=== PATIENT | male | born 1940 ===

== ENCOUNTER 2018-12-14 02:35 | Inpatient (IN) | payer OTHER ==
[2018-12-14] MEDS ORDERED: Sodium Chloride 0.9% 1,000 ML IV STA ×2 (02:43→05:16)
[2018-12-14 03:47] LABS: VENOUS BLOOD GAS BASE EXCESS 0.2 mmol/L (0.0-2.0); VENOUS BLOOD GAS PCO2 71 mmHg (40-60); VENOUS BLOOD GAS PO2 20 mm/Hg (30-55); VENOUS BLOOD PH 7.23 (7.32-7.43)
[2018-12-14 03:50] LABS: BASO # 0.1 K/uL (0.0-0.2); BASO % 0.5 % (0.0-2.0); EOS # 0.2 K/uL (0.0-0.7); EOS % 1.8 % (0.0-4.0); HEMOGLOBIN 12.9 g/dL (12.0-18.0); LYMPH # 2.1 K/uL (1.0-4.3); LYMPH % 17.2 % (20.0-40.0); MEAN CELL VOLUME 93.9 fl (80.0-94.0); MEAN CORPUSCULAR HEMOGLOBIN 32.1 pg (27.0-31.0); MEAN CORPUSCULAR HGB CONC 34.2 g/dL (33.0-37.0); MEAN PLATELET VOLUME 7.2 fl (7.2-11.7); MONO # 1.3 K/uL (0.0-0.8); NEUT # 8.4 K/uL (1.8-7.0); NEUT % 69.5 % (50.0-75.0); NRBC % 0.2 % (0.0-0.0); RBC 4.01 Mil/uL (4.40-5.90); RED CELL DISTRIBUTION WIDTH 14.9 % (11.5-14.5)
[2018-12-14] MEDS ORDERED: Piperacillin/Tazobact 3.375 GM in Sodium Chloride 0.9% 100 ML IVPB STA (03:54)
[2018-12-14 04:02] LABS: ABG ALLEN TEST YES; ARTERIAL BLOOD GAS HCO3 24.3 mmol/L (21-28); ARTERIAL BLOOD GAS O2 SAT 98.4 % (95-98); ARTERIAL BLOOD GAS PCO2 37 mm/Hg (35-45); ARTERIAL BLOOD GAS PH 7.41 (7.35-7.45); ARTERIAL BLOOD GAS PO2 115 mm/Hg (80-100); ARTERIAL BLOOD GAS TCO2 24.6 mmol/L (22-28)
[2018-12-14] MEDS ORDERED: Piperacillin/Tazobact 3.375 gm Inj IVPB ONE (04:05)
[2018-12-14 04:45] LABS: BARBITURATES, UR NEGATIVE (NEGATIVE); BENZODIAZEPINES, UR NEGATIVE (NEGATIVE); OPIATES, UR NEGATIVE (NEGATIVE); PHENCYCLIDINE, UR NEGATIVE (NEGATIVE)
[2018-12-14 04:54] LABS: ALB/GLOB RATIO 1.1 (1.0-2.1); ALBUMIN 4.2 g/dL (3.5-5.0); ALT/SGPT 25 U/L (21-72); AST/SGOT 41 U/L (17-59); BLOOD UREA NITROGEN 16 mg/dl (9-20); CALCIUM 8.9 mg/dL (8.4-10.2); GFR NON-AFRICAN AMERICAN > 60
[2018-12-14] MEDS ORDERED: Dextrose 50% SYRINGE Inj (50 ml) IVP ONE (05:17)
--- NOTE | 2018-12-14 05:17 | ED PDOC ---
Hyperglycemia/Hypoglycemia Time Seen by Provider: 12/14/18 02:37 Chief Complaint (Nursing): High Blood Sugar Chief Complaint (Provider): Hypoglycemia History Per: Patient, EMS History/Exam Limitations: no limitations Onset/Duration Of Symptoms: Unknown Current Symptoms Are (Timing): Still Present : The patient does not have any of the infectious symptoms listed except for those marked. Additional Complaint(s): 78 y/o male brought in by EMS after a security installation sales technician at his residence heard moaning at the other side of the door, finding him on the floor. Patient was hypoglycemic in the field. Patient received d50 and somewhat recovered but still appeared confused. On arrival to the ED, patient states that he takes many medications but is unable to recall any of them at this time. Patient reports that he doesn't know why he is here. At this time, patient is currently alert and oriented (x2). Patient believes his PMD is Dr. Luana Alvarado in [place]. PMD: Luana Alvarado ([place], [place]) Past Medical History Reviewed: Historical Data, Nursing Documentation, Vital Signs Vital Signs: Last Vital Signs Temp 94.5 F L 12/14/18 03:20 Pulse 90 12/14/18 03:20 Resp 14 12/14/18 03:20 BP 119/66 12/14/18 03:20 Pulse Ox 99 12/14/18 03:20 - Medical History PMH: Diabetes - Surgical History Surgical History: No Surg Hx - Family History Family History: States: Unknown Family Hx - Immunization History Hx Tetanus Toxoid Vaccination: No Hx Influenza Vaccination: No Hx Pneumococcal Vaccination: No - Home Medications Home Medications: Ambulatory Orders Medication Instructions Recorded Aspirin [Ecotrin] 81 mg PO DAILY 12/14/18 Brimonidine Tartrate/Timolol 1 drop EACHEYE Q12 12/14/18 [Combigan 0.2%-0.5% Eye Drops] Dutasteride [Avodart] 0.5 mg PO DAILY 12/14/18 Ergocalciferol (Vitamin D2) 50,000 unit PO QWK 12/14/18 [Vitamin D2] Escitalopram [Lexapro] 20 mg PO HS 12/14/18 Fenofibric Acid (Choline) 135 mg PO DAILY 12/14/18 [Fenofibric Acid] Finasteride [Proscar] 5 mg PO DAILY 12/14/18 Gabapentin [Neurontin] 300 mg PO HS 12/14/18 Insulin Detemir [Levemir] 30 unit SC Q12 12/14/18 Isosorbide Mononitrate ER [Imdur 30 mg PO DAILY 12/14/18 ER] Lipase/Protease/Amylase [Lana Dr 4 cap PO TID 12/14/18 6,000 Units Capsule] Melatonin 10 mg PO HS PRN 12/14/18 Meloxicam [Mobic] 15 mg PO DAILY 12/14/18 Metoprolol Succinate XL [Toprol XL] 25 mg PO DAILY 12/14/18 Omeprazole 20 mg PO DAILY 12/14/18 Simvastatin [Zocor] 20 mg PO HS 12/14/18 Sitagliptin Phos/Metformin HCl 1 tab PO DAILY 12/14/18 [Janumet Xr 50-1,000 mg Tablet] - Allergies Allergies/Adverse Reactions: Allergies Allergy/AdvReac Type Severity Reaction Status Date / Time No Known Allergies Allergy Unverified 08/08/13 11:27 Review of Systems ROS Statement: Except As Marked, All Systems Reviewed And Found Negative Constitutional: Positive for: Other (HYPOGLYCEMIA) Neurological: Positive for: Confusion, Altered Mental Status Physical Exam - Reviewed Nursing Documentation Reviewed: Yes Vital Signs Reviewed: Yes - Physical Exam Appears: Positive for: Non-toxic, No Acute Distress Head Exam: Positive for: ATRAUMATIC, NORMOCEPHALIC Skin: Positive for: Normal Color, Warm, Dry Eye Exam: Positive for: Other (L eye with large cataract ) ENT: Positive for: Pharynx Is (Dry mucus membranes) Neck: Positive for: Normal, Painless ROM, Supple Cardiovascular/Chest: Positive for: Regular Rate, Rhythm. Negative for: Murmur Respiratory: Positive for: Normal Breath Sounds. Negative for: Respiratory Distress Gastrointestinal/Abdominal: Positive for: Normal Exam, Soft. Negative for: Tenderness Extremity: Positive for: Normal ROM. 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 Negative for: Motor/Sensory Deficits - Laboratory Results Result Diagrams: 12/14/18 03:35 12/14/18 04:00 Lab Results: pCO2 37 mm/Hg (35-45) 12/14/18 03:57 pO2 115 mm/Hg (80-100) H 12/14/18 03:57 HCO3 24.3 mmol/L (21-28) 12/14/18 03:57 ABG pH 7.41 (7.35-7.45) 12/14/18 03:57 ABG Total CO2 24.6 mmol/L (22-28) 12/14/18 03:57 ABG O2 Saturation 98.4 % (95-98) H 12/14/18 03:57 ABG Base Excess -0.8 mmol/L (-2.0-3.0) 12/14/18 03:57 Maury Test Yes 12/14/18 03:57 ABG Potassium 4.2 mmol/L (3.6-5.2) 12/14/18 03:57 VBG pH 7.23 (7.32-7.43) L 12/14/18 03:43 VBG pCO2 71 mmHg (40-60) H* 12/14/18 03:43 VBG HCO3 23.0 mmol/L 12/14/18 03:43 VBG Total CO2 31.9 mmol/L (22-28) H 12/14/18 03:43 VBG O2 Sat (Calc) 25.8 % (40-65) L 12/14/18 03:43 VBG Base Excess 0.2 mmol/L (0.0-2.0) 12/14/18 03:43 VBG Potassium 3.6 mmol/L (3.6-5.2) 12/14/18 03:43 A-a O2 Difference -12.0 mm/Hg 12/14/18 03:57 Sodium 131.0 mmol/L (132-148) L 12/14/18 03:57 Chloride 101.0 mmol/L (98-107) 12/14/18 03:57 Glucose 85 mg/dL (75-110) 12/14/18 03:57 Lactate 1.7 mmol/L (0.7-2.1) 12/14/18 03:57 FiO2 21.0 % 12/14/18 03:57 Crit Value Called To Dr vivek roberson 12/14/18 03:43 Crit Value Called By Pablo 12/14/18 03:43 Crit Value Read Back Y 12/14/18 03:43 Blood Gas Notified Time 346 12/14/18 03:43 Total Bilirubin 0.3 mg/dl (0.2-1.3) 12/14/18 04:00 AST 41 U/L (17-59) 12/14/18 04:00 ALT 25 U/L (21-72) 12/14/18 04:00 Alkaline Phosphatase 47 U/L (38-126) 12/14/18 04:00 Total Protein 8.0 G/DL (6.3-8.2) 12/14/18 04:00 Albumin 4.2 g/dL (3.5-5.0) 12/14/18 04:00 Globulin 3.8 gm/dL (2.2-3.9) 12/14/18 04:00 Albumin/Globulin Ratio 1.1 (1.0-2.1) 12/14/18 04:00 - ECG O2 Sat by Pulse Oximetry: 99 (RA) Pulse Ox Interpretation: Normal Medical Decision Making Medical Decision Making: Time: 0243 A/P: Patient brought in for hypoglycemia. Patient found to be hypothermic with elevated WBC. -- Initial VBG showed elevated lactate and CO2 -- ABG demonstrates normal CO2 and Lactate -- Do not suspect meningitis given supple neck. Will give empiric antibiotics for sepsis. -- Will admit for altered mental status and hypothermia, sepsis, unknown source, possibly PNA? -- VBG -- CT Head w/o Contrast -- Alcohol Serum -- Urine Drug Screen -- Lipase -- Troponin I -- CBC with Differentials -- CXR -- Glucose POC -- Sodium Chloride IV 1000 mls/hr Time: 0354 Plan: -- ABG -- Vancomycin 1 gm Sodium Chloride 250 ml IVPB -- Zosyn 3.375 gm Sodium Chloride 100 ml IVPB -- Blood Culture -- Urine Culture -- Tiara Ramirez -- O2 via 100% Nonrebreather Time: 0410 CT scan of the head. CLINICAL HISTORY: Altered mental status. TECHNIQUE: Multiple axial CT images were obtained through the brain without IV contrast material. comparison: 11/27/2010. COMMENTS: Mild right mastoid effusion. Mild effusion in the right middle ear cavity. There is normal configuration of sella turcica. There are no intra or extra- axial collections. There is no mass effect or midline shift. There is no evidence of hematoma formation. No hydrocephalus is present. The ventricles are symmetrical. No abnormal calcifications are present. There is diffuse age-appropriate cerebellar and cerebral atrophy with proportionally dilated ventricles and cortical sulci. There are bilateral periventricular and subcortical white matter hypolucencies compatible with mild chronic microvascular disease. Otherwise, no significant focal abnormalities are seen either in the posterior fossa or supratentorial compartment. Hyperdense left globe. IMPRESSION: 1. Age-appropriate cerebellar and cerebral atrophy. 2. Mild chronic microvascular disease. 3. No evidence of acute intracranial pathology. Thank you for your kind referral of this patient. Electronically signed on Dec 14, 2018 4:10:53 AM EDT by: Javad Reyes M.D., Certified by ABR, MSK, Neuroradiology Time: 435 Plan: -- CMP Time: 517 Plan: -- Urinalysis -- Sodium Chloride 0.9% IV 1000 mls/hr -- Dextrose 50% Inj 50 ml IVP -- Glucose, POC [address] Fung who accepts admission and will continue care. Scribe Attestation: Documented by Milo Seth, acting as a scribe for Vivek Roberson MD. Provider Scribe Attestation: All medical record entries made by the Scribe were at my direction and personally dictated by me. I have reviewed the chart and agree that the record accurately reflects my personal performance of the history, physical exam, medical decision making, and the department course for this patient. I have also personally directed, reviewed, and agree with the discharge instructions and disposition. Disposition - Clinical Impression Clinical Impression: Hypoglycemia, Hypothermia, Sepsis - Patient ED Disposition Is Patient to be Admitted: Yes - Disposition Disposition Time: 06:00 Condition: FAIR
[2018-12-14] MEDS ORDERED: Dextrose 50% SYRINGE Inj (50 ml) ONE (05:29)
[2018-12-14 05:34] LABS: URINE BILIRUBIN NEGATIVE (NEGATIVE); URINE BLOOD NEGATIVE (NEGATIVE); URINE CLARITY SLIGHTY-CLOUDY (Clear); URINE COLOR YELLOW (YELLOW); URINE GLUCOSE (UA) 150 mg/dL (NEGATIVE); URINE LEUKOCYTE ESTERASE NEG Leu/uL (Negative); URINE PROTEIN NEGATIVE (NEGATIVE); URINE UROBILINOGEN 0.2-1.0 mg/dL (0.2-1.0)
[2018-12-14] MEDS ORDERED: Vancomycin 1 g Inj ONE (05:42)
[2018-12-14] MEDS ORDERED: Dextrose 5%/0.9% NS 1,000 ML IV ONE (08:15)
[2018-12-14] MEDS ORDERED: Glucagon Recombinant 1 mg Inj IM PRN (08:23)
[2018-12-14] MEDS ORDERED: Dextrose 50% SYRINGE Inj (50 ml) IV PRN (08:23)
--- NOTE | 2018-12-14 08:56 | CARD ---
APPROVED REPORT Date of service: 12/14/2018 EKG Measurement Heart [id number] <Conclusion> Atrial fibrillation Right bundle branch block Abnormal ECG
[2018-12-14 09:45] LABS: PROTHROMBIN TIME 11.5 Seconds (9.8-13.1)
[2018-12-14 09:47] LABS: PARTIAL THROMBOPLASTIN TIME 33.2 Seconds (25.6-37.1)
[2018-12-14 09:57] VITALS: BMI 25.6
--- NOTE | 2018-12-14 10:31 | CT ---
Date of service: 12/14/2018 PROCEDURE: CT HEAD WITHOUT CONTRAST. HISTORY: ams COMPARISON: 11/27/2010 TECHNIQUE: Axial computed tomography images were obtained through the head/brain without intravenous contrast. Radiation dose: Total exam DLP = 922.44 mGy-cm. This CT exam was performed using one or more of the following dose reduction techniques: Automated exposure control, adjustment of the mA and/or kV according to patient size, and/or use of iterative reconstruction technique. FINDINGS: HEMORRHAGE: No intracranial hemorrhage. BRAIN: No mass effect or edema. Mild diffuse age-appropriate cerebral atrophy. There is mild to moderate periventricular white matter lucency with patchy deep and subcortical white matter lucency, consistent with microvascular white matter ischemic change. 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 This is new since prior head CT examination. There is no evidence of acute infarct. VENTRICLES: Unremarkable. No hydrocephalus. CALVARIUM: Unremarkable. PARANASAL SINUSES: Unremarkable as visualized. No significant inflammatory changes. MASTOID AIR CELLS: There is nonspecific right mastoid effusion. There is soft tissue density and coarse calcification within the right middle ear cavity of uncertain significance. Possible cholesteatoma. Rule out otitis media. There is soft tissue density seen within the left external auditory canal possibly reflecting cerumen. Correlate with direct visual inspection. OTHER FINDINGS: None. IMPRESSION: No intracranial mass, hemorrhage or evidence of acute infarct. Chronic white matter ischemic change. Old left thalamic lacunar infarct. Nonspecific right mastoid effusion. Soft tissue density and coarse calcification in the right middle ear cavity of uncertain significance. Rule out cholesteatoma. Consider further evaluation. Rule out otitis media. The preliminary findings for this examination were reported by [facility] Rad[facility] at 4:10 a.m. on 12/14/2018.. There is discordance of this report with the preliminary findings. The possibility of right mastoiditis and right otitis media/cholesteatoma were not described in the preliminary report of this examination
[2018-12-14] MEDS: Insulin Regular 100 units/ml SC SCH ×3 (12:00→23:26)
[2018-12-14] MEDS ORDERED: Ergocalciferol 50,000 Intl Units Cap PO SCH (13:45)
--- NOTE | 2018-12-14 13:47 | CP.PCM.HP ---
History of Present Illness - History of Present Illness History of Present Illness: Pt is a poor historian. Oriented to name only. History obtained on review of medication records and after discussion with sister and brother. 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 On presentation to ED, patient was found to be Septic, Altered Mental Status, Hypothermic, and Cxray showing R. lung consolidation. Family states that they last saw him yesterday afternoon and he appeared to be in his usual health. They denied seeing any cough, chills, n/v, or diarrhea. 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 They express concern that he often becomes confused in the evening which is problematic given that he has to inject himself with insulin at bedtime. Pt walks with cane but falls frequently. PMD: Dr. Suarez Present on Admission - Present on Admission Any Indicators Present on Admission: No History of DVT/PE: No History of Uncontrolled Diabetes: No Urinary Catheter: No Decubitus Ulcer Present: No Review of Systems - Constitutional Constitutional: absent: Chills, Fever - EENT Eyes: Other (left eye blindness) - Cardiovascular Cardiovascular: absent: Chest Pain, Dyspnea - Respiratory Respiratory: absent: Cough - Gastrointestinal Gastrointestinal: absent: Abdominal Pain, Diarrhea - Genitourinary Genitourinary: absent: Dysuria - Musculoskeletal Musculoskeletal: Abnormal Gait - Neurological Neurological: Abnormal Gait, Frequent Falls Past Patient History - Past Social History Smoking Status: Never Smoked - CARDIAC Hx Cardiac Disorders: Yes Hx Hypertension: Yes - PULMONARY Hx Respiratory Disorders: No - NEUROLOGICAL Hx Neurological Disorder: No - HEENT Hx HEENT Problems: Yes Hx Cataracts: Yes (Lt eye) - RENAL Hx Chronic Kidney Disease: No - ENDOCRINE/METABOLIC Hx Endocrine Disorders: Yes Hx Diabetes Mellitus Type 1: Yes - HEMATOLOGICAL/ONCOLOGICAL Hx Blood Disorders: No - INTEGUMENTARY Hx Dermatological Problems: No - MUSCULOSKELETAL/RHEUMATOLOGICAL Hx Musculoskeletal Disorders: No - GASTROINTESTINAL Hx Gastrointestinal Disorders: No - GENITOURINARY/GYNECOLOGICAL Hx Genitourinary Disorders: Yes Hx Prostate Problems: Yes - PSYCHIATRIC Hx Psychophysiologic Disorder: No Hx Substance Use: No - SURGICAL HISTORY Hx Surgeries: Yes Other/Comment: Prostate - ANESTHESIA Hx Anesthesia: Yes Hx Anesthesia Reactions: No Meds Allergies/Adverse Reactions: Allergies Allergy/AdvReac Type Severity Reaction Status Date / Time No Known Allergies Allergy Unverified 08/08/13 11:27 Physical Exam - Constitutional Appears: In Acute Distress (pt appears agitated; attempting to remove is line. Later in the afternoon, appears more calm ) - Head Exam Head Exam: NORMAL INSPECTION - Eye Exam Eye Exam: Normal appearance - ENT Exam ENT Exam: Mucous Membranes Dry - Neck Exam Neck exam: Negative for: Meningismus - Respiratory Exam Respiratory Exam: Decreased Breath Sounds, Clear to Auscultation Bilateral - Cardiovascular Exam Cardiovascular Exam: Irregular Rhythm, +S1, +S2 - GI/Abdominal Exam GI & Abdominal Exam: Normal Bowel Sounds, Soft. absent: Tenderness - Extremities Exam Extremities exam: Positive for: normal inspection - Neurological Exam Neurological exam: Alert - Psychiatric Exam Psychiatric exam: Agitated - Skin Skin Exam: Normal Color Results - Vital Signs Recent Vital Signs: Last Vital Signs Temp 98 F 12/14/18 07:33 Pulse 65 12/14/18 07:33 Resp 18 12/14/18 07:33 BP 106/67 12/14/18 07:33 Pulse Ox 100 12/14/18 07:33 - Labs Result Diagrams: 12/14/18 03:35 12/14/18 04:00 Labs: Laboratory Results - last 24 hr 12/14/18 12/14/18 12/14/18 02:56 03:35 03:43 WBC 12.0 H RBC 4.01 L Hgb 12.9 Hct 37.7 MCV 93.9 MCH 32.1 H MCHC 34.2 RDW 14.9 H Plt Count 539 H MPV 7.2 Neut % (Auto) 69.5 Lymph % (Auto) 17.2 L [place] % (Auto) 11.0 H Eos % (Auto) 1.8 Baso % (Auto) 0.5 Neut # (Auto) 8.4 H Lymph # (Auto) 2.1 [place] # (Auto) 1.3 H Eos # (Auto) 0.2 Baso # (Auto) 0.1 pCO2 pO2 20 L HCO3 ABG pH ABG Total CO2 ABG O2 Saturation ABG Base Excess Maury Test ABG Potassium VBG pH 7.23 L VBG pCO2 71 H* VBG HCO3 23.0 VBG Total CO2 31.9 H VBG O2 Sat (Calc) 25.8 L VBG Base Excess 0.2 VBG Potassium 3.6 A-a O2 Difference Sodium 133.0 Chloride 99.0 Glucose 73 L Lactate 2.7 H FiO2 21.0 Crit Value Called To Dr ruy mejia Crit Value Called By Crit Value Read Back Y Blood Gas Notified Time 346 Potassium Carbon Dioxide Anion Gap BUN Creatinine Est GFR ( Amer) Est GFR (Non-Af Amer) POC Glucose (mg/dL) 111 H Random Glucose Calcium Total Bilirubin AST ALT Alkaline Phosphatase Total Protein Albumin Globulin Albumin/Globulin Ratio Arterial Blood Potassium Venous Blood Potassium 3.6 Urine Color Urine Clarity Urine pH Ur Specific [place] Urine Protein Urine Glucose (UA) Urine Ketones Urine Blood Urine Nitrate Urine Bilirubin Urine Urobilinogen Ur Leukocyte Esterase Urine RBC (Auto) Urine Microscopic WBC Urine Opiates Screen Urine Methadone Screen Ur Barbiturates Screen Ur Phencyclidine Scrn Ur Amphetamines Screen U Benzodiazepines Scrn U Oth Cocaine Metabols U Cannabinoids Screen 12/14/18 12/14/18 12/14/18 03:57 04:00 04:15 WBC RBC Hgb Hct MCV MCH MCHC RDW Plt Count MPV Neut % (Auto) Lymph % (Auto) [place] % (Auto) Eos % (Auto) Baso % (Auto) Neut # (Auto) Lymph # (Auto) [place] # (Auto) Eos # (Auto) Baso # (Auto) pCO2 37 pO2 115 H HCO3 24.3 ABG pH 7.41 ABG Total CO2 24.6 ABG O2 Saturation 98.4 H ABG Base Excess -0.8 Maury Test Yes ABG Potassium 4.2 VBG pH VBG pCO2 VBG HCO3 VBG Total CO2 VBG O2 Sat (Calc) VBG Base Excess VBG Potassium A-a O2 Difference -12.0 Sodium 131.0 L 137 Chloride 101.0 95 L Glucose 85 Lactate 1.7 FiO2 21.0 Crit Value Called To Crit Value Called By Crit Value Read Back Blood Gas Notified Time Potassium 4.2 Carbon Dioxide 27 Anion Gap 19 BUN 16 Creatinine 0.9 Est GFR ( Amer) > 60 Est GFR (Non-Af Amer) > 60 POC Glucose (mg/dL) Random Glucose 66 L Calcium 8.9 Total Bilirubin 0.3 AST 41 ALT 25 Alkaline Phosphatase 47 Total Protein 8.0 Albumin 4.2 Globulin 3.8 Albumin/Globulin Ratio 1.1 Arterial Blood Potassium 4.2 Venous Blood Potassium Urine Color Urine Clarity Urine pH Ur Specific [place] Urine Protein Urine Glucose (UA) Urine Ketones Urine Blood Urine Nitrate Urine Bilirubin Urine Urobilinogen Ur Leukocyte Esterase Urine RBC (Auto) Urine Microscopic WBC Urine Opiates Screen Negative Urine Methadone Screen Negative Ur Barbiturates Screen Negative Ur Phencyclidine Scrn Negative Ur Amphetamines Screen Negative U Benzodiazepines Scrn Negative U Oth Cocaine Metabols Negative U Cannabinoids Screen Negative 12/14/18 12/14/18 12/14/18 05:16 05:24 06:45 WBC RBC Hgb Hct MCV MCH MCHC RDW Plt Count MPV Neut % (Auto) Lymph % (Auto) [place] % (Auto) Eos % (Auto) Baso % (Auto) Neut # (Auto) Lymph # (Auto) [place] # (Auto) Eos # (Auto) Baso # (Auto) pCO2 pO2 HCO3 ABG pH ABG Total CO2 ABG O2 Saturation ABG Base Excess Maury Test ABG Potassium VBG pH VBG pCO2 VBG HCO3 VBG Total CO2 VBG O2 Sat (Calc) VBG Base Excess VBG Potassium A-a O2 Difference Sodium Chloride Glucose Lactate FiO2 Crit Value Called To Crit Value Called By Crit Value Read Back Blood Gas Notified Time Potassium Carbon Dioxide Anion Gap BUN Creatinine Est GFR ( Amer) Est GFR (Non-Af Amer) POC Glucose (mg/dL) 64 L 150 H Random Glucose Calcium Total Bilirubin AST ALT Alkaline Phosphatase Total Protein Albumin Globulin Albumin/Globulin Ratio Arterial Blood Potassium Venous Blood Potassium Urine Color Yellow Urine Clarity Slighty-cloudy Urine pH 7.0 Ur Specific [place] 1.012 Urine Protein Negative Urine Glucose (UA) 150 Urine Ketones Negative Urine Blood Negative Urine Nitrate Negative Urine Bilirubin Negative Urine Urobilinogen 0.2-1.0 Ur Leukocyte Esterase Neg Urine RBC (Auto) < 1 Urine Microscopic WBC < 1 Urine Opiates Screen Urine Methadone Screen Ur Barbiturates Screen Ur Phencyclidine Scrn Ur Amphetamines Screen U Benzodiazepines Scrn U Oth Cocaine Metabols U Cannabinoids Screen 12/14/18 07:44 WBC RBC Hgb Hct MCV MCH MCHC RDW Plt Count MPV Neut % (Auto) Lymph % (Auto) [place] % (Auto) Eos % (Auto) Baso % (Auto) Neut # (Auto) Lymph # (Auto) [place] # (Auto) Eos # (Auto) Baso # (Auto) pCO2 pO2 HCO3 ABG pH ABG Total CO2 ABG O2 Saturation ABG Base Excess Maury Test ABG Potassium VBG pH VBG pCO2 VBG HCO3 VBG Total CO2 VBG O2 Sat (Calc) VBG Base Excess VBG Potassium A-a O2 Difference Sodium Chloride Glucose Lactate FiO2 Crit Value Called To Crit Value Called By Crit Value Read Back Blood Gas Notified Time Potassium Carbon Dioxide Anion Gap BUN Creatinine Est GFR ( Amer) Est GFR (Non-Af Amer) POC Glucose (mg/dL) 112 H Random Glucose Calcium Total Bilirubin AST ALT Alkaline Phosphatase Total Protein Albumin Globulin Albumin/Globulin Ratio Arterial Blood Potassium Venous Blood Potassium Urine Color Urine Clarity Urine pH Ur Specific [place] Urine Protein Urine Glucose (UA) Urine Ketones Urine Blood Urine Nitrate Urine Bilirubin Urine Urobilinogen Ur Leukocyte Esterase Urine RBC (Auto) Urine Microscopic WBC Urine Opiates Screen Urine Methadone Screen Ur Barbiturates Screen Ur Phencyclidine Scrn Ur Amphetamines Screen U Benzodiazepines Scrn U Oth Cocaine Metabols U Cannabinoids Screen Assessment & Plan - Assessment and Plan (Free Text) Assessment: 78 y/o male with hx of 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 Pt was found on the floor of his apt, confused with accucheck of 30 and he was given D50%. On presentation to ED, patient was found to be Septic, Altered Mental Status, Hypothermic, Afibb, with Cxray showing R. lung consolidation. ER course: Hypotensive (fluid responsive), tachycardiac, hypothermic Leukocytosis 12, no left shift Lactic acid 2.7 resolved after fluids POCG by EMS was 30, s/p D50 UA wnl Utox normal Head CT:No acute intracranial pathology EKG: Atrial Fibrilation, RBBB ER Interventions s/p 2L NS Bolus S/P D50 S/P Vanco and Zosyn #Sepsis #AMS #Hypothermia #Lung Consolidation #Atrial Fibrillation #Hypoglycemia #Gait Instability #Dementia - Empiric ABX: Vanco & Zosyn - S/p Fluid recucitation w/ 2L. C/W maintenance fluids, D5NS at 100cc/hr - Hypothermia resolved after passive warming, continue to monitor temps - AMS, Baseline mental status unknown. Likely metabolic encephalopathy in setting fo Sepsis, Neuro check q4 - Paroxysomal Afibb on presentation. Now rate controlled. Repeat EKG Normal Sinus Rhythm. - Accuchecks ACHS, Hypoglycemia Protocol, Low dose ISS, Start liquid diet. 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 Antonieta Vargas, PGY2
[2018-12-14] MEDS: Enoxaparin 40 mg Syringe SC SCH (14:04)
--- NOTE | 2018-12-14 15:37 | RAD ---
Date of service: 12/14/2018 PROCEDURE: CHEST RADIOGRAPH, 1 VIEW HISTORY: ams COMPARISON: None available. FINDINGS: LUNGS: Clear. PLEURA: No pneumothorax or pleural fluid seen. CARDIOVASCULAR: No aortic atherosclerotic calcification present. Normal. OSSEOUS STRUCTURES: No significant abnormalities. VISUALIZED UPPER ABDOMEN: Normal. OTHER FINDINGS: None. IMPRESSION: No active disease.
[2018-12-14] MEDS ORDERED: Piperacillin/Tazobact 3.375 GM in Sodium Chloride 0.9% 100 ML IVPB SCH (17:00)
--- NOTE | 2018-12-14 17:31 | CARD ---
APPROVED REPORT Date of service: 12/14/2018 EKG Measurement Heart [id number] <Conclusion> Normal sinus rhythm Right bundle branch block Abnormal ECG
[2018-12-14] MEDS: Piperacillin/Tazobact 3.375 GM in Sodium Chloride 0.9% 100 ML IVPB SCH (17:53)
[2018-12-14] MEDS: Amylase/Lipase/Protease 5,000 Units ECC PO SCH (17:54)
[2018-12-15] MEDS: Piperacillin/Tazobact 3.375 GM in Sodium Chloride 0.9% 100 ML IVPB SCH ×3 (00:14→17:12)
[2018-12-15 06:26] LABS: BASO # 0.1 K/uL (0.0-0.2); BASO % 1.1 % (0.0-2.0); EOS # 0.3 K/uL (0.0-0.7); EOS % 3.2 % (0.0-4.0); HEMOGLOBIN 11.5 g/dL (12.0-18.0); LYMPH # 2.4 K/uL (1.0-4.3); LYMPH % 28.1 % (20.0-40.0); MEAN CELL VOLUME 93.4 fl (80.0-94.0); MEAN CORPUSCULAR HEMOGLOBIN 31.7 pg (27.0-31.0); MEAN CORPUSCULAR HGB CONC 33.9 g/dL (33.0-37.0); MEAN PLATELET VOLUME 7.5 fl (7.2-11.7); MONO # 1.2 K/uL (0.0-0.8); MONO % 14.4 % (0.0-10.0); NEUT # 4.5 K/uL (1.8-7.0); NEUT % 53.2 % (50.0-75.0); NRBC % 0.1 % (0.0-0.0); RBC 3.62 Mil/uL (4.40-5.90); RED CELL DISTRIBUTION WIDTH 14.6 % (11.5-14.5); WHITE BLOOD COUNT 8.5 K/uL (4.8-10.8)
[2018-12-15] MEDS ORDERED: Levothyroxine 125 MCG TAB PO SCH (06:30)
[2018-12-15 06:42] LABS: BLOOD UREA NITROGEN 11 mg/dl (9-20); CALCIUM 8.5 mg/dL (8.4-10.2); GFR NON-AFRICAN AMERICAN > 60
[2018-12-15] MEDS: Levothyroxine 150 MCG TAB PO SCH (06:51)
[2018-12-15] MEDS: Brimonidine 0.2% 50 DROP/5 ML BOTTLE OU SCH ×3 (08:38→17:10)
[2018-12-15] MEDS: Insulin Regular 100 units/ml SC SCH ×4 (08:42→22:00)
[2018-12-15] MEDS: Enoxaparin 40 mg Syringe SC SCH (08:44)
[2018-12-15] MEDS: Amylase/Lipase/Protease 5,000 Units ECC PO SCH ×3 (08:55→17:11)
--- NOTE | 2018-12-15 13:05 | CP.PCM.PN ---
Subjective - Date & Time of Evaluation Date of Evaluation: 12/15/18 Time of Evaluation: 08:00 - Subjective Subjective: No acute overnight events. Pt seen and examined this morning. Seen lying in bed, appears comfortable. Denies pain, cough, sob, cp, or fever/chills. States he is hungry. Objective - Vital Signs/Intake and Output Vital Signs (last 24 hours): Temp Pulse Resp BP Pulse Ox 98.1 F 63 18 138/72 99 12/15/18 08:28 12/15/18 08:28 12/15/18 08:28 12/15/18 08:28 12/15/18 08:28 - Medications Medications: Current Medications Acetaminophen (Tylenol 325mg Tab) 650 mg PO Q6 PRN PRN Reason: Fever >100.4 F Amylase (Pancrease 80594 U-5000 U-22670 U) 5,000 unit PO TID [facility] Last Admin: 12/15/18 08:55 Dose: 5,000 unit Aspirin (Ecotrin) 81 mg PO DAILY [facility] Last Admin: 12/15/18 08:39 Dose: 81 mg Atorvastatin Calcium (Lipitor) 10 mg PO HS [facility] Last Admin: 12/14/18 21:06 Dose: 10 mg Brimonidine Tartrate (Alphagan 0.2% Opht) 1 drop OU TID [facility] Last Admin: 12/15/18 08:38 Dose: 1 drop Dextrose (Dextrose 50% Inj) 0 ml IV STAT PRN; Protocol PRN Reason: Hypoglycemia Protocol Dextrose (Glutose 15) 0 gm PO ONCE PRN; Protocol PRN Reason: Hypoglycemia Protocol Enoxaparin Sodium (Lovenox) 40 mg SC DAILY [facility]; Protocol Last Admin: 12/15/18 08:44 Dose: 40 mg Ergocalciferol (Drisdol 50,000 Intl Units Cap) 1 cap PO QWK [facility] Escitalopram Oxalate (Lexapro) 20 mg PO HS [facility] Last Admin: 12/14/18 21:06 Dose: 20 mg Famotidine (Pepcid) 40 mg IVP DAILY [facility] Last Admin: 12/15/18 09:13 Dose: 40 mg Fenofibrate (Tricor) 145 mg PO DAILY [facility] Last Admin: 12/15/18 08:47 Dose: 145 mg Finasteride (Proscar) 5 mg PO DAILY [facility] Last Admin: 12/15/18 08:46 Dose: 5 mg Gabapentin (Neurontin) 300 mg PO HS [facility] Last Admin: 12/14/18 21:06 Dose: 300 mg Glucagon (Glucagen Diagnostic Kit) 0 mg IM STAT PRN; Protocol PRN Reason: Hypoglycemia Protocol Home Med (Dutasteride [Avodart]) 0.5 mg PO DAILY [facility] Vancomycin HCl 1 gm/ Sodium (Chloride) 250 mls @ 166.667 mls/hr IVPB DAILY [facility]; Protocol Last Admin: 12/15/18 08:47 Dose: 166.667 mls/hr Piperacillin Sod/Tazobactam (Sod 3.375 gm/ Sodium Chloride) 100 mls @ 100 mls/hr IVPB Q8H [facility]; Protocol Last Admin: 12/15/18 08:48 Dose: 100 mls/hr Insulin Human Regular (Humulin R) 0 units SC ACHS [facility]; Protocol Last Admin: 12/15/18 08:42 Dose: 1 unit Levothyroxine Sodium (Synthroid) 150 mcg PO DAILY@0630 [facility] Last Admin: 12/15/18 06:51 Dose: 150 mcg Metformin HCl (Glucophage) 500 mg PO BIDWM [facility] Last Admin: 12/15/18 08:40 Dose: 500 mg Sitagliptin Phosphate (Januvia) 50 mg PO DAILY [facility] Last Admin: 12/15/18 08:44 Dose: 50 mg Timolol [facility]ate [facility] 1 drop OU Q12 [facility] Last Admin: 12/15/18 08:46 Dose: 1 drop - Labs Labs: 12/15/18 06:19 12/15/18 05:40 PT 11.5 Seconds (9.8-13.1) 12/14/18 09:15 INR 1.0 12/14/18 09:15 APTT 33.2 Seconds (25.6-37.1) 12/14/18 09:15 - Constitutional Appears: No Acute Distress - Head Exam Head Exam: NORMAL INSPECTION - Eye Exam Eye Exam: Normal appearance - ENT Exam ENT Exam: Mucous Membranes Moist - Respiratory Exam Respiratory Exam: Clear to Ausculation Bilateral. absent: Accessory Muscle Use, Rales, Wheezes - Cardiovascular Exam Cardiovascular Exam: REGULAR RHYTHM, +S1, +S2 - GI/Abdominal Exam GI & Abdominal Exam: Soft, Normal Bowel Sounds. absent: Tenderness - Extremities Exam Extremities Exam: Normal Inspection - Neurological Exam Neurological Exam: Alert - Psychiatric Exam Psychiatric exam: Normal Affect - Skin Skin Exam: Normal Color Assessment and Plan - Assessment and Plan (Free Text) Assessment: 78 y/o male with hx of 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 Pt was found on the floor of his apt, confused with accucheck of 30 and he was given D50%. On presentation to ED, patient was found to be Septic, Altered Mental Status, Hypothermic, Afibb, with Cxray showing R. lung consolidation. #Sepsis, resolved #AMS, resolved #Hypothermia, resolved #Pneumonia, improving #Atrial Fibrillation, resolved #Hypoglycemia, resolved #Gait Instability #Dementia , chronic - No longer meets Sepsis Criteria. Temp wnl in 24 hours, Leukocytosis resolved. Bcx's negative thur far. - C/W Empiric ABX: Vanco & Zosyn. Will consider de-escalating antibiotics for [place] P coverage - Hemodynamically stable, fluids discontinued - Accuchecks ACHS, Hypoglycemia Protocol, Low dose ISS, Diabetic diet. - satellite project site monitor - Vitals q4 - DVT ppx, Lovenox - GI ppx, Pepcid IV BID - F/U CBC, BMP, Bcx,Ucx - Social Work Consult- needs more assistance at home with evening medication - PT/OT for gait stability and ADL's Dispo-Subacute rehab recommended Discussed case with Dr. Antonieta Vargas, PGY2
[2018-12-16] MEDS: Piperacillin/Tazobact 3.375 GM in Sodium Chloride 0.9% 100 ML IVPB SCH ×3 (00:39→17:07)
[2018-12-16 06:02] LABS: HEMOGLOBIN 12.6 g/dL (12.0-18.0); MEAN CELL VOLUME 93.4 fl (80.0-94.0); MEAN CORPUSCULAR HEMOGLOBIN 32.4 pg (27.0-31.0); MEAN CORPUSCULAR HGB CONC 34.7 g/dL (33.0-37.0); RBC 3.88 Mil/uL (4.40-5.90); RED CELL DISTRIBUTION WIDTH 14.6 % (11.5-14.5); WHITE BLOOD COUNT 7.5 K/uL (4.8-10.8)
[2018-12-16] MEDS: Insulin Regular 100 units/ml SC SCH ×4 (06:38→21:29)
[2018-12-16 06:39] LABS: ALB/GLOB RATIO 1.1 (1.0-2.1); ALBUMIN 3.9 g/dL (3.5-5.0); ALT/SGPT 10 U/L (21-72); AST/SGOT 39 U/L (17-59); BLOOD UREA NITROGEN 10 mg/dl (9-20); CALCIUM 9.1 mg/dL (8.4-10.2); GFR NON-AFRICAN AMERICAN > 60
[2018-12-16] MEDS: Levothyroxine 150 MCG TAB PO SCH (06:41)
--- NOTE | 2018-12-16 08:02 | CP.PCM.PN ---
<Girish Vargas - Last Filed: 12/16/18 07:55> Subjective - Date & Time of Evaluation Date of Evaluation: 12/16/18 Time of Evaluation: 08:00 - Subjective Subjective: Overnight pt was restless and agitated, trying to get out of bed and aggressive with staff, was given Ativan 0.5mg x2. Seen and examined this morning with Dr. Fung at the bedside. Pt seen sleeping comfortably this morning Objective - Vital Signs/Intake and Output Vital Signs (last 24 hours): Temp Pulse Resp BP Pulse Ox 98.3 F 66 18 154/85 H 95 12/16/18 05:30 12/16/18 05:30 12/16/18 05:30 12/16/18 05:30 12/16/18 05:30 - Medications Medications: Current Medications Acetaminophen (Tylenol 325mg Tab) 650 mg PO Q6 PRN PRN Reason: Fever >100.4 F Amylase (Pancrease 96445 U-5000 U-[id number] U) 5,000 unit PO TID [facility] Last Admin: 12/15/18 17:11 Dose: 5,000 unit Aspirin (Ecotrin) 81 mg PO DAILY [facility] Last Admin: 12/15/18 08:39 Dose: 81 mg Atorvastatin Calcium (Lipitor) 10 mg PO HS [facility] Last Admin: 12/15/18 21:15 Dose: Not Given Brimonidine Tartrate (Alphagan 0.2% Opht) 1 drop OU TID [facility] Last Admin: 12/15/18 17:10 Dose: 1 drop Dextrose (Dextrose 50% Inj) 0 ml IV STAT PRN; Protocol PRN Reason: Hypoglycemia Protocol Dextrose (Glutose 15) 0 gm PO ONCE PRN; Protocol PRN Reason: Hypoglycemia Protocol Enoxaparin Sodium (Lovenox) 40 mg SC DAILY [facility]; Protocol Last Admin: 12/15/18 08:44 Dose: 40 mg Ergocalciferol (Drisdol 50,000 Intl Units Cap) 1 cap PO QWK [facility] Escitalopram Oxalate (Lexapro) 20 mg PO HS [facility] Last Admin: 12/15/18 21:15 Dose: Not Given Famotidine (Pepcid) 40 mg IVP DAILY [facility] Last Admin: 12/15/18 09:13 Dose: 40 mg Fenofibrate (Tricor) 145 mg PO DAILY [facility] Last Admin: 12/15/18 08:47 Dose: 145 mg Finasteride (Proscar) 5 mg PO DAILY [facility] Last Admin: 12/15/18 08:46 Dose: 5 mg Gabapentin (Neurontin) 300 mg PO HS [facility] Last Admin: 12/15/18 21:15 Dose: Not Given Glucagon (Glucagen Diagnostic Kit) 0 mg IM STAT PRN; Protocol PRN Reason: Hypoglycemia Protocol Home Med (Dutasteride [Avodart]) 0.5 mg PO DAILY [facility] Vancomycin HCl 1 gm/ Sodium (Chloride) 250 mls @ 166.667 mls/hr IVPB DAILY [facility]; Protocol Last Admin: 12/15/18 08:47 Dose: 166.667 mls/hr Piperacillin Sod/Tazobactam (Sod 3.375 gm/ Sodium Chloride) 100 mls @ 100 mls/hr IVPB Q8H [facility]; Protocol Last Admin: 12/16/18 00:39 Dose: 100 mls/hr Insulin Human Regular (Humulin R) 0 units SC ACHS [facility]; Protocol Last Admin: 12/16/18 06:38 Dose: Not Given Levothyroxine Sodium (Synthroid) 150 mcg PO DAILY@0630 [facility] Last Admin: 12/16/18 06:41 Dose: 150 mcg Metformin HCl (Glucophage) 500 mg PO BIDWM [facility] Last Admin: 12/15/18 17:11 Dose: 500 mg Sitagliptin Phosphate (Januvia) 50 mg PO DAILY [facility] Last Admin: 12/15/18 08:44 Dose: 50 mg Timolol Maleate (Timoptic 0.5% Oph Soln) 1 drop OU Q12 [facility] Last Admin: 12/15/18 21:16 Dose: Not Given - Labs Labs: 12/16/18 05:35 12/16/18 05:35 PT 11.5 Seconds (9.8-13.1) 12/14/18 09:15 INR 1.0 12/14/18 09:15 APTT 33.2 Seconds (25.6-37.1) 12/14/18 09:15 - Constitutional Appears: No Acute Distress - Head Exam Head Exam: NORMAL INSPECTION - Eye Exam Eye Exam: Normal appearance - ENT Exam ENT Exam: Mucous Membranes Moist - Respiratory Exam Respiratory Exam: Clear to Ausculation Bilateral - Cardiovascular Exam Cardiovascular Exam: REGULAR RHYTHM - Extremities Exam Extremities Exam: Normal Inspection - Neurological Exam Neurological Exam: Alert. absent: Oriented x3 - Psychiatric Exam Psychiatric exam: Normal Affect - Skin Skin Exam: Normal Color Assessment and Plan - Assessment and Plan (Free Text) Assessment: 78 y/o male with hx of 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 Pt was found on the floor of his apt, confused with accucheck of 30 and he was given D50%. On presentation to ED, patient was found to be Septic, Altered Mental Status, Hypothermic, Afibb, with Cxray showing R. lung consolidation. #Pneumonia, improving #Sepsis, resolved #AMS, resolved #Hypothermia, resolved #Atrial Fibrillation, resolved #Hypoglycemia, resolved #Gait Instability #Dementia, chronic - No longer meets Sepsis Criteria. Temp wnl in 24 hours, Leukocytosis resolved. Bcx's negative thur far. - C/W Empiric ABX: Vanco & Zosyn. - Has intermittent periods of agitation in the evening (sun-downing?); possible underlying dementia, will get Neuro and Psych evaluation - Accuchecks ACHS, Hypoglycemia Protocol, Low dose ISS, Diabetic diet. - DVT ppx, Lovenox - GI ppx, Pepcid IV BID - PT/OT for gait stability and ADL's - Transfer to med/surg today - F/U CBC, BMP, Bcx,Ucx Dispo-Subacute rehab recommended. SW is working on getting pt into [facility] or [facility] as per family's request. Discussed case with Dr. Antonieta Vargas, PGY2 <Ferny Fung - Last Filed: 12/19/18 10:18> Objective - Vital Signs/Intake and Output Vital Signs (last 24 hours): Temp Pulse Resp BP Pulse Ox 98 F 73 18 121/68 95 12/19/18 08:31 12/19/18 08:31 12/19/18 08:31 12/19/18 08:31 12/19/18 08:31 - Medications Medications: Current Medications Acetaminophen (Tylenol 325mg Tab) 650 mg PO Q6 PRN PRN Reason: Fever >100.4 F Amylase (Pancrease 76023 U-5000 U-77567 U) 5,000 unit PO TID [facility] Last Admin: 12/19/18 09:02 Dose: 5,000 unit Aspirin (Ecotrin) 81 mg PO DAILY [facility] Last Admin: 12/18/18 08:58 Dose: 81 mg Atorvastatin Calcium (Lipitor) 10 mg PO HS [facility] Last Admin: 12/18/18 21:41 Dose: 10 mg Brimonidine Tartrate (Alphagan 0.2% Opht) 1 drop OU TID [facility] Last Admin: 12/19/18 09:02 Dose: 1 drop Dextrose (Dextrose 50% Inj) 0 ml IV STAT PRN; Protocol PRN Reason: Hypoglycemia Protocol Dextrose (Glutose 15) 0 gm PO ONCE PRN; Protocol PRN Reason: Hypoglycemia Protocol Ergocalciferol (Drisdol 50,000 Intl Units Cap) 1 cap PO QWK [facility] Escitalopram Oxalate (Lexapro) 20 mg PO HS [facility] Last Admin: 12/18/18 21:42 Dose: 20 mg Famotidine (Pepcid) 40 mg IVP DAILY [facility] Last Admin: 12/19/18 09:15 Dose: 40 mg Fenofibrate (Tricor) 145 mg PO DAILY [facility] Last Admin: 12/19/18 09:02 Dose: 145 mg Finasteride (Proscar) 5 mg PO DAILY [facility] Last Admin: 12/19/18 09:07 Dose: 5 mg Gabapentin (Neurontin) 300 mg PO HS [facility] Last Admin: 12/18/18 21:41 Dose: 300 mg Glucagon (Glucagen Diagnostic Kit) 0 mg IM STAT PRN; Protocol PRN Reason: Hypoglycemia Protocol Haloperidol Lactate (Haldol) 0.5 mg IVP Q6 PRN PRN Reason: Agitation Last Admin: 12/19/18 09:14 Dose: 0.5 mg Home Med (Dutasteride [Avodart]) 0.5 mg PO DAILY [facility] Piperacillin Sod/Tazobactam (Sod 3.375 gm/ Sodium Chloride) 100 mls @ 100 mls/hr IVPB Q8 [facility]; Protocol Last Admin: 12/19/18 09:15 Dose: 100 mls/hr Insulin Human Regular (Humulin R) 0 units SC ACHS [facility]; Protocol Last Admin: 12/18/18 23:32 Dose: Not Given Levothyroxine Sodium (Synthroid) 150 mcg PO DAILY@0630 [facility] Last Admin: 12/19/18 06:56 Dose: 150 mcg Metformin HCl (Glucophage) 1,000 mg PO BIDWM [facility] Last Admin: 12/19/18 09:08 Dose: Not Given Sitagliptin Phosphate (Januvia) 50 mg PO DAILY [facility] Last Admin: 12/19/18 09:03 Dose: 50 mg Timolol Maleate (Timoptic 0.5% Ophth Soln) 1 drop OU Q12 [facility] Last Admin: 12/19/18 09:06 Dose: 1 drop - Labs Labs: 12/19/18 06:15 12/19/18 06:15 PT 11.5 Seconds (9.8-13.1) 12/14/18 09:15 INR 1.0 12/14/18 09:15 APTT 33.2 Seconds (25.6-37.1) 12/14/18 09:15 Assessment and Plan - Assessment and Plan (Free Text) Assessment: Patient was personally seen and examined by me in rounds with residents. Available labs and diagnostic data reviewed. Case, Patient's condition and management plan discussed with residents in rounds. Agree with resident's progress note.
[2018-12-16] MEDS: Enoxaparin 40 mg Syringe SC SCH (09:48)
[2018-12-16] MEDS: Amylase/Lipase/Protease 5,000 Units ECC PO SCH ×3 (09:49→19:07)
[2018-12-16] MEDS: Brimonidine 0.2% 50 DROP/5 ML BOTTLE OU SCH ×3 (09:52→19:06)
--- NOTE | 2018-12-16 16:25 | CP.PCM.CON ---
History of Present Illness - History of Present Illness History of Present Illness: pt is a 78 y/o male with hx of partial blindness (left eye) and deafness (right ear), HT, DM, Dementia, Pancreatic Insufficiency, Hypothyroidism, and BPH was brought to by EMS after being found on the floor of his apt, confused, with accucheck of 30. On presentation to ED, patient was found to be Septic with Altered Mental Status, Overnight pt was restless and agitated, trying to get out of bed and aggressive with staff, on evaluation this morning pt was cooperative, was able to verbalize why he is in the hospital, indicated that he has a home management supervisor who spends about three hours daily with him to help him with his ADL'S otherwisw he is spending his time watching TV, pt reported feeling down at times as he does not see his family members as he would like to , reported decreased sleep with early insomnia, decreased appetite pt denied suicidal or homicidal ideation denied perceptual disturbances, alert awake, oriented to person, place and time, reping month is november and season is spring Past Patient History - Past Medical History & Family History Past Medical History?: Yes - Past Social History Smoking Status: Never Smoked - CARDIAC Hx Cardiac Disorders: Yes - PULMONARY Hx Respiratory Disorders: No - NEUROLOGICAL Hx Neurological Disorder: No - HEENT Hx HEENT Problems: Yes Hx Blind: Yes - RENAL Hx Chronic Kidney Disease: No - ENDOCRINE/METABOLIC Hx Endocrine Disorders: Yes Hx Diabetes Mellitus Type 1: Yes Hx Hypothyroidism: Yes - HEMATOLOGICAL/ONCOLOGICAL Hx AIDS: No Hx Human Immunodeficiency Virus (HIV): No - INTEGUMENTARY Hx Dermatological Problems: No - MUSCULOSKELETAL/RHEUMATOLOGICAL Hx Falls: Yes Hx Unsteady Gait: Yes - GASTROINTESTINAL Hx Gastrointestinal Disorders: No - GENITOURINARY/GYNECOLOGICAL Hx Genitourinary Disorders: Yes - PSYCHIATRIC Hx Substance Use: No - SURGICAL HISTORY Hx Surgeries: Yes Other/Comment: Prostate - ANESTHESIA Hx Anesthesia: No Hx Anesthesia Reactions: No Meds Allergies/Adverse Reactions: Allergies Allergy/AdvReac Type Severity Reaction Status Date / Time No Known Allergies Allergy Unverified 08/08/13 11:27 - Medications Medications: Current Medications Acetaminophen (Tylenol 325mg Tab) 650 mg PO Q6 PRN PRN Reason: Fever >100.4 F Amylase (Pancrease 11838 U-5000 U-13835 U) 5,000 unit PO TID [facility] Last Admin: 12/15/18 17:11 Dose: 5,000 unit Aspirin (Ecotrin) 81 mg PO DAILY [facility] Last Admin: 12/15/18 08:39 Dose: 81 mg Atorvastatin Calcium (Lipitor) 10 mg PO HS [facility] Last Admin: 12/15/18 21:15 Dose: Not Given Brimonidine Tartrate (Alphagan 0.2% Opht) 1 drop OU TID [facility] Last Admin: 12/15/18 17:10 Dose: 1 drop Dextrose (Dextrose 50% Inj) 0 ml IV STAT PRN; Protocol PRN Reason: Hypoglycemia Protocol Dextrose (Glutose 15) 0 gm PO ONCE PRN; Protocol PRN Reason: Hypoglycemia Protocol Enoxaparin Sodium (Lovenox) 40 mg SC DAILY [facility]; Protocol Last Admin: 12/15/18 08:44 Dose: 40 mg Ergocalciferol (Drisdol 50,000 Intl Units Cap) 1 cap PO QWK [facility] Escitalopram Oxalate (Lexapro) 20 mg PO HS [facility] Last Admin: 12/15/18 21:15 Dose: Not Given Famotidine (Pepcid) 40 mg IVP DAILY [facility] Last Admin: 12/15/18 09:13 Dose: 40 mg Fenofibrate (Tricor) 145 mg PO DAILY [facility] Last Admin: 12/15/18 08:47 Dose: 145 mg Finasteride (Proscar) 5 mg PO DAILY [facility] Last Admin: 12/15/18 08:46 Dose: 5 mg Gabapentin (Neurontin) 300 mg PO HS [facility] Last Admin: 12/15/18 21:15 Dose: Not Given Glucagon (Glucagen Diagnostic Kit) 0 mg IM STAT PRN; Protocol PRN Reason: Hypoglycemia Protocol Home Med (Dutasteride [Avodart]) 0.5 mg PO DAILY [facility] Vancomycin HCl 1 gm/ Sodium (Chloride) 250 mls @ 166.667 mls/hr IVPB DAILY [facility]; Protocol Last Admin: 12/15/18 08:47 Dose: 166.667 mls/hr Piperacillin Sod/Tazobactam (Sod 3.375 gm/ Sodium Chloride) 100 mls @ 100 mls/hr IVPB Q8H [facility]; Protocol Last Admin: 12/16/18 00:39 Dose: 100 mls/hr Insulin Human Regular (Humulin R) 0 units SC ACHS [facility]; Protocol Last Admin: 12/16/18 06:38 Dose: Not Given Levothyroxine Sodium (Synthroid) 150 mcg PO DAILY@0630 [facility] Last Admin: 12/16/18 06:41 Dose: 150 mcg Metformin HCl (Glucophage) 500 mg PO BIDWM [facility] Last Admin: 12/15/18 17:11 Dose: 500 mg Sitagliptin Phosphate (Januvia) 50 mg PO DAILY [facility] Last Admin: 12/15/18 08:44 Dose: 50 mg Timolol Maleate (Timoptic 0.5% Oph Soln) 1 drop OU Q12 [facility] Last Admin: 12/15/18 21:16 Dose: Not Given Results - Vital Signs Recent Vital Signs: Last Vital Signs Temp 98.7 F 12/16/18 08:40 Pulse 71 12/16/18 08:40 Resp 20 12/16/18 08:40 BP 124/72 12/16/18 08:40 Pulse Ox 94 L 12/16/18 08:40 - Labs Result Diagrams: 12/16/18 05:35 12/16/18 05:35 Labs: Laboratory Results - last 24 hr 12/15/18 12/15/18 12/15/18 05:40 12:00 15:54 WBC RBC Hgb Hct MCV MCH MCHC RDW Plt Count Sodium Potassium Chloride Carbon Dioxide Anion Gap BUN Creatinine Est GFR ( Amer) Est GFR (Non-Af Amer) POC Glucose (mg/dL) 150 H 153 H Random Glucose Hemoglobin A1c 7.3 H Calcium Total Bilirubin AST ALT Alkaline Phosphatase Total Protein Albumin Globulin Albumin/Globulin Ratio 12/15/18 12/16/18 12/16/18 22:09 05:35 05:35 WBC 7.5 RBC 3.88 L Hgb 12.6 Hct 36.2 MCV 93.4 MCH 32.4 H MCHC 34.7 RDW 14.6 H Plt Count 484 H Sodium 132 Potassium 4.3 Chloride 101 Carbon Dioxide 22 Anion Gap 13 BUN 10 Creatinine 1.0 Est GFR ( Amer) > 60 Est GFR (Non-Af Amer) > 60 POC Glucose (mg/dL) 212 H Random Glucose 171 H Hemoglobin A1c Calcium 9.1 Total Bilirubin 0.5 AST 39 ALT 10 L D Alkaline Phosphatase 48 Total Protein 7.5 Albumin 3.9 Globulin 3.6 Albumin/Globulin Ratio 1.1 12/16/18 06:01 WBC RBC Hgb Hct MCV MCH MCHC RDW Plt Count Sodium Potassium Chloride Carbon Dioxide Anion Gap BUN Creatinine Est GFR ( Amer) Est GFR (Non-Af Amer) POC Glucose (mg/dL) 215 H Random Glucose Hemoglobin A1c Calcium Total Bilirubin AST ALT Alkaline Phosphatase Total Protein Albumin Globulin Albumin/Globulin Ratio Assessment & Plan - Assessment and Plan (Free Text) Assessment: adjustment disorder with depressed mood Plan: pt stable at current mental status episode of agitation possible due to hospital delirium, recommend haldol 0.25mg po q12 prn for agitation social media executive to possibly assist with more home health aid services on dischage
[2018-12-17] MEDS: Piperacillin/Tazobact 3.375 GM in Sodium Chloride 0.9% 100 ML IVPB SCH ×3 (00:30→18:00)
[2018-12-17] MEDS: Levothyroxine 150 MCG TAB PO SCH (06:15)
[2018-12-17 06:20] LABS: BASO # 0.1 K/uL (0.0-0.2); BASO % 1.5 % (0.0-2.0); EOS # 0.4 K/uL (0.0-0.7); EOS % 5.2 % (0.0-4.0); HEMOGLOBIN 12.3 g/dL (12.0-18.0); LYMPH # 2.2 K/uL (1.0-4.3); LYMPH % 30.1 % (20.0-40.0); MEAN CELL VOLUME 93.5 fl (80.0-94.0); MEAN CORPUSCULAR HEMOGLOBIN 32.5 pg (27.0-31.0); MEAN CORPUSCULAR HGB CONC 34.8 g/dL (33.0-37.0); MEAN PLATELET VOLUME 7.7 fl (7.2-11.7); MONO # 1.1 K/uL (0.0-0.8); MONO % 15.4 % (0.0-10.0); NEUT # 3.4 K/uL (1.8-7.0); NEUT % 47.8 % (50.0-75.0); NRBC % 0.1 % (0.0-0.0); RBC 3.77 Mil/uL (4.40-5.90); WHITE BLOOD COUNT 7.1 K/uL (4.8-10.8)
[2018-12-17 06:32] LABS: BLOOD UREA NITROGEN 12 mg/dl (9-20); CALCIUM 8.9 mg/dL (8.4-10.2); GFR NON-AFRICAN AMERICAN > 60
[2018-12-17] MEDS: Insulin Regular 100 units/ml SC SCH ×3 (08:58→18:00)
[2018-12-17] MEDS: Brimonidine 0.2% 50 DROP/5 ML BOTTLE OU SCH ×3 (09:13→18:00)
[2018-12-17] MEDS: Enoxaparin 40 mg Syringe SC SCH (09:18)
[2018-12-17] MEDS: Amylase/Lipase/Protease 5,000 Units ECC PO SCH ×3 (09:19→18:00)
--- NOTE | 2018-12-17 11:09 | PN ---
DATE: 12/17/2018 SUBJECTIVE: The patient seen and examined. Interim events noted. Consults noted and appreciated. Psychiatric followup and intervention noted and appreciated. The patient remains in progressive care unit with telemetry monitoring, sleeping, arousable. Denies any specific complaint of chest pain or shortness of breath. PHYSICAL EXAMINATION: GENERAL: The patient is in no acute distress. VITAL SIGNS: Stable. HEART: S1 and S2 normal and regular. LUNGS: Good bilateral air exchange. ABDOMEN: Soft and nontender. EXTREMITIES: No edema, no calf swelling, no tenderness, no acute ischemia. CENTRAL NERVOUS SYSTEM: Exam is essentially unchanged, and there is no sign of any acute gross focal motor or sensory neurological deficits. DIAGNOSTIC DATA: Available diagnostic data reviewed. ASSESSMENT AND PLAN: Overall, the patient's general medical condition is stable. Plan as ordered. Ferny Fung MD
[2018-12-18] MEDS: Piperacillin/Tazobact 3.375 GM in Sodium Chloride 0.9% 100 ML IVPB SCH ×3 (00:39→16:34)
[2018-12-18] MEDS: Insulin Regular 100 units/ml SC SCH ×5 (00:54→23:32)
[2018-12-18] MEDS: Levothyroxine 150 MCG TAB PO SCH (06:41)
[2018-12-18 08:46] LABS: HEMOGLOBIN 11.8 g/dL (12.0-18.0); MEAN CELL VOLUME 93.1 fl (80.0-94.0); MEAN CORPUSCULAR HEMOGLOBIN 32.2 pg (27.0-31.0); MEAN CORPUSCULAR HGB CONC 34.6 g/dL (33.0-37.0); RBC 3.67 Mil/uL (4.40-5.90); RED CELL DISTRIBUTION WIDTH 14.6 % (11.5-14.5)
[2018-12-18] MEDS: Enoxaparin 40 mg Syringe SC SCH (08:55)
[2018-12-18] MEDS: Amylase/Lipase/Protease 5,000 Units ECC PO SCH ×3 (08:57→16:40)
[2018-12-18] MEDS: Brimonidine 0.2% 50 DROP/5 ML BOTTLE OU SCH ×3 (08:58→16:39)
--- NOTE | 2018-12-18 09:04 | PN ---
DATE: 12/18/2018 SUBJECTIVE: The patient is seen and examined. Interim events noted. The patient remains in regular medical floor. Sleeping, arousable. Not able to provide informative history or review of systems, but denies any specific complaints. Nursing staff reported patient with urinary retention, but then the patient voided himself. The patient denies any abdominal pain specifically. PHYSICAL EXAMINATION GENERAL: The patient is in no acute distress. VITAL SIGNS: Stable. HEART: S1 and S2 normal and regular. LUNGS: Good bilateral air exchange. ABDOMEN: Soft and nontender. No organomegaly. No fluid. Bowel sounds are present and normal. No signs of suprapubic tenderness or fullness. EXTREMITIES: No edema. No calf swelling. No tenderness. No acute ischemia. CENTRAL NERVOUS SYSTEM: Essentially unchanged. DIAGNOSTIC DATA: Available diagnostic data reviewed. ASSESSMENT AND PLAN: Overall, the patient is medically stable. Plan as ordered. Ferny Fung MD
[2018-12-18 09:10] LABS: ALBUMIN 3.5 g/dL (3.5-5.0); ALT/SGPT 29 U/L (21-72); AST/SGOT 50 U/L (17-59); BLOOD UREA NITROGEN 12 mg/dl (9-20); CALCIUM 8.5 mg/dL (8.4-10.2); GFR NON-AFRICAN AMERICAN > 60
--- NOTE | 2018-12-18 22:58 | CON ---
DATE: 12/18/2018 Neurology consult called by Dr. Ferny Fung. HISTORY OF PRESENT ILLNESS: Mr. Romero is a 78-year-old male with a past medical history of partial blindness, deafness, hypertension, diabetes, dementia, pancreatic insufficiency, hypothyroidism, who was brought by the EMS after being found confused with blood sugar of 30. Neurology consult was called for alerted mental status. When I saw him in the emergency room, I would say that the patient was awake, alert, oriented x2. He did not have any weakness. He did not have any headache. No nausea. No vomiting. No diarrhea. REVIEW OF SYSTEMS: Today is the same. The patient had confusion when he injected himself insulin at night. PAST MEDICAL HISTORY: As above. PAST SURGICAL HISTORY: As above. FAMILY HISTORY AND SOCIAL HISTORY: The patient lives alone. He has a family. He has several children. ALLERGIES: NO KNOWN DRUG ALLERGIES. PHYSICAL EXAMINATION: NEUROLOGIC: The patient is blind in the left eye. Otherwise, he is alert and oriented x3. Pupils are equal and reactive to light. Cranial nerves II through XII are normal. Speech is fluent in [place]. He follows commands and moves all extremities upper and lower bilaterally. Strength is 5/5. Sensory is intact to fine touch and pin. Gait is normal. Reflexes are +2 in upper and lower limbs bilaterally. There is no clonus. LABORATORY DATA: CT of the head was done and is normal except for a calcification in the right middle ear. It could be caused by trauma. Labs are within normal except for initial white count . Chemistry shows 196 glucose, now the same. Urine is normal. IMPRESSION: This is a 78-year-old male with altered mental status secondary to hypoglycemia. PLAN: At this point, there is no neurological intervention needed. I do not recommend MRI of the brain. Please re-consult us p.r.n. if needed. Vicente Bustamante MD
[2018-12-19] MEDS: Piperacillin/Tazobact 3.375 GM in Sodium Chloride 0.9% 100 ML IVPB SCH ×3 (00:33→17:17)
[2018-12-19 06:31] LABS: MEAN CELL VOLUME 93.8 fl (80.0-94.0); MEAN CORPUSCULAR HEMOGLOBIN 31.7 pg (27.0-31.0); MEAN CORPUSCULAR HGB CONC 33.8 g/dL (33.0-37.0); RBC 3.8 Mil/uL (4.40-5.90); RED CELL DISTRIBUTION WIDTH 14.6 % (11.5-14.5); WHITE BLOOD COUNT 7.7 K/uL (4.8-10.8)
[2018-12-19 06:44] LABS: ALB/GLOB RATIO 1.1 (1.0-2.1); ALBUMIN 3.6 g/dL (3.5-5.0); ALT/SGPT 32 U/L (21-72); AST/SGOT 53 U/L (17-59); BLOOD UREA NITROGEN 13 mg/dl (9-20); GFR NON-AFRICAN AMERICAN > 60
[2018-12-19] MEDS: Levothyroxine 150 MCG TAB PO SCH (06:56)
[2018-12-19] MEDS: Amylase/Lipase/Protease 5,000 Units ECC PO SCH ×3 (09:02→17:16)
[2018-12-19] MEDS: Brimonidine 0.2% 50 DROP/5 ML BOTTLE OU SCH ×3 (09:02→17:18)
--- NOTE | 2018-12-19 09:24 | PN ---
DATE: 12/19/2018 SUBJECTIVE: The patient seen and examined. Interim events noted. Consults noted and appreciated. Neurology intervention consult noted and appreciated. The patient remains in regular medical floor. The patient feels okay. Denies any specific complaint. No specific issue reported by nursing staff. PHYSICAL EXAMINATION: GENERAL: The patient is in no acute distress. VITAL SIGNS: Stable. HEART: S1 and S2 normal and regular. LUNGS: Good bilateral air exchange. ABDOMEN: Soft, nontender. EXTREMITIES: No edema, no calf swelling, no tenderness. No acute ischemia. CENTRAL NERVOUS SYSTEM: Essentially unchanged. DIAGNOSTIC DATA: Available diagnostic data reviewed. Overall, the patient is medically stable. Plan as ordered. Ferny Fung MD
[2018-12-19] MEDS: Insulin Regular 100 units/ml SC SCH ×3 (12:12→22:23)
[2018-12-19 16:40] VITALS: RESP 20; TEMP 97.7
[2018-12-20] MEDS: Piperacillin/Tazobact 3.375 GM in Sodium Chloride 0.9% 100 ML IVPB SCH ×2 (00:31→09:44)
[2018-12-20] MEDS: Levothyroxine 150 MCG TAB PO SCH (05:48)
[2018-12-20 09:02] VITALS: BP 156/71; PULSE 71; O2SAT 95
[2018-12-20] MEDS: Brimonidine 0.2% 50 DROP/5 ML BOTTLE OU SCH ×2 (09:20→12:40)
[2018-12-20] MEDS: Insulin Regular 100 units/ml SC SCH ×2 (09:22→12:41)
[2018-12-20] MEDS: Amylase/Lipase/Protease 5,000 Units ECC PO SCH ×2 (09:24→12:43)
--- NOTE | 2018-12-20 11:17 | CP.PCM.DIS ---
Provider - Provider Date of Admission: 12/14/18 05:12 Attending physician: Ferny Fung MD Primary care physician: Fatoumata Alvarado MD Consults: 12/14/18 13:37 Social Work Referral Routine Comment: home care Physician Instructions: home assitance with evening medicaiton Reason For Exam: home care 12/15/18 10:02 Urology Consult Routine Comment: Consulting Provider: Paige Crook Consulting Physician: Paige Crook Reason for Consult: urinary retention 12/16/18 07:50 Neurology Consult Routine Comment: Consulting Provider: Vicente Bustamante Consulting Physician: Vicente Bustamante Reason for Consult: AMS Psychiatry Consult Routine Comment: Consulting Provider: Federico Silva Consulting Physician: Federico Silva Reason for Consult: AMS, dementia? 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 Eval Time Spent in preparation of Discharge (in minutes): 35 Diagnosis - Discharge Diagnosis (1) Pneumonia Status: Resolved (2) Sepsis Status: Resolved Hospital Course - Lab Results Lab Results: Micro Results 12/14/18 03:35 Blood Blood Culture - Final NO GROWTH AFTER 5 DAYS 12/14/18 03:35 Blood Gram Stain - Final TEST NOT PERFORMED 12/14/18 04:00 Blood Blood Culture - Final NO GROWTH AFTER 5 DAYS 12/14/18 04:00 Blood Gram Stain - Final TEST NOT PERFORMED 12/14/18 09:33 Naris MRSA Culture (Admit) - Final MRSA NOT DETECTED 12/14/18 04:15 Urine Random Urine Culture - Final No Growth (<1,000 CFU/ML) Most Recent Lab Values WBC 7.7 K/uL (4.8-10.8) 12/19/18 06:15 RBC 3.80 Mil/uL (4.40-5.90) L 12/19/18 06:15 Hgb 12.0 g/dL (12.0-18.0) 12/19/18 06:15 Hct 35.6 % (35.0-51.0) 12/19/18 06:15 MCV 93.8 fl (80.0-94.0) 12/19/18 06:15 MCH 31.7 pg (27.0-31.0) H 12/19/18 06:15 MCHC 33.8 g/dL (33.0-37.0) 12/19/18 06:15 RDW 14.6 % (11.5-14.5) H 12/19/18 06:15 Plt Count 440 K/uL (130-400) H 12/19/18 06:15 MPV 7.7 fl (7.2-11.7) 12/17/18 04:30 Neut % (Auto) 47.8 % (50.0-75.0) L 12/17/18 04:30 Lymph % (Auto) 30.1 % (20.0-40.0) 12/17/18 04:30 Winston % (Auto) 15.4 % (0.0-10.0) H 12/17/18 04:30 Eos % (Auto) 5.2 % (0.0-4.0) H 12/17/18 04:30 Baso % (Auto) 1.5 % (0.0-2.0) 12/17/18 04:30 Neut # (Auto) 3.4 K/uL (1.8-7.0) 12/17/18 04:30 Lymph # (Auto) 2.2 K/uL (1.0-4.3) 12/17/18 04:30 Winston # (Auto) 1.1 K/uL (0.0-0.8) H 12/17/18 04:30 Eos # (Auto) 0.4 K/uL (0.0-0.7) 12/17/18 04:30 Baso # (Auto) 0.1 K/uL (0.0-0.2) 12/17/18 04:30 PT 11.5 Seconds (9.8-13.1) 12/14/18 09:15 INR 1.0 12/14/18 09:15 APTT 33.2 Seconds (25.6-37.1) 12/14/18 09:15 pCO2 37 mm/Hg (35-45) 12/14/18 03:57 pO2 115 mm/Hg (80-100) H 12/14/18 03:57 HCO3 24.3 mmol/L (21-28) 12/14/18 03:57 ABG pH 7.41 (7.35-7.45) 12/14/18 03:57 ABG Total CO2 24.6 mmol/L (22-28) 12/14/18 03:57 ABG O2 Saturation 98.4 % (95-98) H 12/14/18 03:57 ABG Base Excess -0.8 mmol/L (-2.0-3.0) 12/14/18 03:57 Maury Test Yes 12/14/18 03:57 ABG Potassium 4.2 mmol/L (3.6-5.2) 12/14/18 03:57 VBG pH 7.23 (7.32-7.43) L 12/14/18 03:43 VBG pCO2 71 mmHg (40-60) H* 12/14/18 03:43 VBG HCO3 23.0 mmol/L 12/14/18 03:43 VBG Total CO2 31.9 mmol/L (22-28) H 12/14/18 03:43 VBG O2 Sat (Calc) 25.8 % (40-65) L 12/14/18 03:43 VBG Base Excess 0.2 mmol/L (0.0-2.0) 12/14/18 03:43 VBG Potassium 3.6 mmol/L (3.6-5.2) 12/14/18 03:43 A-a O2 Difference -12.0 mm/Hg 12/14/18 03:57 Sodium 131.0 mmol/L (132-148) L 12/14/18 03:57 Chloride 101.0 mmol/L (98-107) 12/14/18 03:57 Glucose 85 mg/dL (75-110) 12/14/18 03:57 Lactate 1.7 mmol/L (0.7-2.1) 12/14/18 03:57 FiO2 21.0 % 12/14/18 03:57 Crit Value Called To Dr ruy mejia 12/14/18 03:43 Crit Value Called By Pablo 12/14/18 03:43 Crit Value Read Back Y 12/14/18 03:43 Blood Gas Notified Time 346 12/14/18 03:43 Sodium 132 mmol/l (132-148) 12/19/18 06:15 Potassium 4.0 MMOL/L (3.6-5.0) 12/19/18 06:15 Chloride 96 mmol/L (98-107) L 12/19/18 06:15 Carbon Dioxide 28 mmol/L (22-30) 12/19/18 06:15 Anion Gap 12 (10-20) 12/19/18 06:15 BUN 13 mg/dl (9-20) 12/19/18 06:15 Creatinine 1.0 mg/dl (0.8-1.5) 12/19/18 06:15 Est GFR ( Amer) > 60 12/19/18 06:15 Est GFR (Non-Af Amer) > 60 12/19/18 06:15 POC Glucose (mg/dL) 212 mg/dL (65-110) H 12/20/18 05:20 Random Glucose 238 mg/dL (75-110) H 12/19/18 06:15 Hemoglobin A1c 7.3 % (4.2-6.5) H 12/18/18 06:30 Calcium 9.0 mg/dL (8.4-10.2) 12/19/18 06:15 Total Bilirubin 0.5 mg/dl (0.2-1.3) 12/19/18 06:15 AST 53 U/L (17-59) 12/19/18 06:15 ALT 32 U/L (21-72) 12/19/18 06:15 Alkaline Phosphatase 46 U/L (38-126) 12/19/18 06:15 Total Protein 7.0 G/DL (6.3-8.2) 12/19/18 06:15 Albumin 3.6 g/dL (3.5-5.0) 12/19/18 06:15 Globulin 3.4 gm/dL (2.2-3.9) 12/19/18 06:15 Albumin/Globulin Ratio 1.1 (1.0-2.1) 12/19/18 06:15 TSH 3rd Generation 10.30 mIU/ML (0.46-4.68) H 12/14/18 09:10 Arterial Blood Potassium 4.2 mmol/L (3.6-5.2) 12/14/18 03:57 Venous Blood Potassium 3.6 mmol/L (3.6-5.2) 12/14/18 03:43 Urine Color Yellow (YELLOW) 12/14/18 05:24 Urine Clarity Slighty-cloudy (Clear) 12/14/18 05:24 Urine pH 7.0 (5.0-8.0) 12/14/18 05:24 Ur Specific [place] 1.012 (1.003-1.030) 12/14/18 05:24 Urine Protein Negative mg/dL (NEGATIVE) 12/14/18 05:24 Urine Glucose (UA) 150 mg/dL (NEGATIVE) 12/14/18 05:24 Urine Ketones Negative mg/dL (NEGATIVE) 12/14/18 05:24 Urine Blood Negative (NEGATIVE) 12/14/18 05:24 Urine Nitrate Negative (NEGATIVE) 12/14/18 05:24 Urine Bilirubin Negative (NEGATIVE) 12/14/18 05:24 Urine Urobilinogen 0.2-1.0 mg/dL (0.2-1.0) 12/14/18 05:24 Ur Leukocyte Esterase Neg Mary Jo/uL (Negative) 12/14/18 05:24 Urine RBC (Auto) < 1 /hpf (0-3) 12/14/18 05:24 Urine Microscopic WBC < 1 /hpf (0-5) 12/14/18 05:24 Urine Opiates Screen Negative (NEGATIVE) 12/14/18 04:15 Urine Methadone Screen Negative (NEGATIVE) 12/14/18 04:15 Ur Barbiturates Screen Negative (NEGATIVE) 12/14/18 04:15 Ur Phencyclidine Scrn Negative (NEGATIVE) 12/14/18 04:15 Ur Amphetamines Screen Negative (NEGATIVE) 12/14/18 04:15 U Benzodiazepines Scrn Negative (NEGATIVE) 12/14/18 04:15 U Oth Cocaine Metabols Negative (NEGATIVE) 12/14/18 04:15 U Cannabinoids Screen Negative (NEGATIVE) 12/14/18 04:15 Influenza Typ A,B (EIA) Negative for flu a/b (NEGATIVE) 12/14/18 09:33 - Hospital Course Hospital Course: 78 y/o male with hx of 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 Pt was found on the floor of his apt, confused with accucheck of 30 and he was given D50%. On presentation to ED, patient was found to be Septic, Altered Mental Status, Hypothermic, Afibb, with Cxray showing R. lung consolidation. He was started on Vancomycin and Zosyn for which he received 7 days worth. During this time, he did not spike any fevers, leukocytosis resolved and Bcx and Ucx showed no growth. Pt had few episodes of agitation/sun downing for which he was evaluated by psychiatry and noted to be fully alert and oriented with stable mental status. He was evaluated by PT which recommended sub-acute rehab. Arr angements were made by social workers and case management for discharge to [facility]. Family made aware and is in agreement. Pt stable on day of discharge. Discharge Exam - Head Exam Head Exam: NORMAL INSPECTION - Eye Exam Eye Exam: Normal appearance - ENT Exam ENT Exam: Mucous Membranes Moist - Respiratory Exam Respiratory Exam: Clear to PA & Lateral - Cardiovascular Exam Cardiovascular Exam: REGULAR RHYTHM - GI/Abdominal Exam GI & Abdominal Exam: Normal Bowel Sounds - Extremities Exam Extremities exam: normal inspection - Neurological Exam Neurological exam: Alert, Oriented x3 - Psychiatric Exam Psychiatric exam: Normal Affect Discharge Plan - Follow Up Plan Condition: FAIR Disposition: REHAB FACILITY/REHAB UNIT Instructions: Hypothermia, Altered Mental Status (DC), Sepsis (DC) Additional Instructions: follow up with primary MD 1 week Referrals: Federico Silva MD [Medical Doctor] - Paige Crook MD [Medical Doctor] - Fatoumata Alvarado MD [Primary Care Provider] - Vicente Bustamante MD [Medical Doctor] -
== END 2018-12-20 14:47 | DRG 871 ==
LOC: H.ER 02:35 → OBSVTOIN 05:12 → H.ERHOLD 05:12 → H.TEL 14:42 → H.MEDSURG1 12-17 08:02 → H.TEL 12-17 08:02 → H.MEDSURG1 12-17 17:07
PROVIDERS: ADMIT Internal Medicine; ATTEND Internal Medicine
DX: A41.9 Sepsis, unspecified organism (principal); J18.9 Pneumonia, unspecified organism; F05 Delirium due to known physiological condition; H54.40 Blindness, one eye, unspecified eye; H91.8X1 Other specified hearing loss, right ear; F03.90 Unspecified dementia, unspecified severity, without behavioral disturbance, psychotic disturbance, mood disturbance, and anxiety; K86.89 Other specified diseases of pancreas; E03.9 Hypothyroidism, unspecified; N40.0 Benign prostatic hyperplasia without lower urinary tract symptoms; F43.21 Adjustment disorder with depressed mood; I48.91 Unspecified atrial fibrillation; I45.10 Unspecified right bundle-branch block; E10.649 Type 1 diabetes mellitus with hypoglycemia without coma; Z79.4 Long term (current) use of insulin; Z79.82 Long term (current) use of aspirin; Z79.1 Long term (current) use of non-steroidal anti-inflammatories (NSAID); N40.1 Benign prostatic hyperplasia with lower urinary tract symptoms; I10 Essential (primary) hypertension